=== PATIENT | female | born 1970 | race Hispanic/Latino ===

== ENCOUNTER 2019-10-03 12:34 | Emergency (ER) | payer SELFPAY ==
--- NOTE | 2019-10-03 13:56 | RAD REPORT ---
EXAM DESCRIPTION: RAD - Chest Pa And Lat (2 Views) - 10/03/2019 1:41 pm CLINICAL HISTORY: COUGH Chest pain. COMPARISON: No comparisons FINDINGS: The lungs are clear. The heart is normal in size. No displaced fractures. IMPRESSION: No acute finding suspected.
--- NOTE | 2019-10-03 14:01 | EDPHYS ---
Physician Documentation [facility] Name: Haley Ba Age: 49 yrs Sex: Female : 1970 Arrival Date: 10/03/2019 Time: 12:38 Bed 15 Private MD: MAHIN Physician Derrick Kaur HPI: 10/02 12:49 This 49 yrs old Female presents to ER via Ambulatory with complaints of Chest jmm Congestion. 12:49 The patient or guardian reports cough. Onset: The symptoms/episode began/occurred jmm gradually, 2 week(s) ago. Modifying factors: The symptoms are alleviated by nothing. the symptoms are aggravated by nothing. Associated signs and symptoms: Pertinent positives: sore throat, Pertinent negatives: diarrhea, fever. Historical: - Allergies: 12:45 No Known Allergies; ss - Home Meds: 12:45 None [Active]; ss - PMHx: 12:45 None; ss - PSHx: 12:45 None; ss - Immunization history:: Adult Immunizations up to date. - Social history:: Smoking status: Patient denies any tobacco usage or history of. ROS: 12:49 Constitutional: Negative for fever, chills, and weight loss, Cardiovascular: Negative jmm for chest pain, palpitations, and edema. 12:49 ENT: Positive for sore throat. 12:49 Respiratory: Positive for cough. 12:49 All other systems are negative. Exam: 12:49 Constitutional: This is a well developed, well nourished patient who is awake, alert, jmm and in no acute distress. Head/Face: atraumatic. Eyes: EOMI, no conjunctival erythema appreciated ENT: Moist Mucus Membranes Neck: Trachea midline, Supple Chest/axilla: Normal chest wall appearance and motion. Cardiovascular: Regular rate and rhythm. No edema appreciated 12:49 Abdomen/GI: Non distended, soft Back: Normal ROM Skin: General appearance color normal MS/ Extremity: Moves all extremities, no obvious deformities appreciated, no edema noted to the lower extremities Neuro: Awake and alert, normal gait Psych: Behavior is normal, Mood is normal, Patient is cooperative and pleasant 12:49 ENT: Posterior pharynx: erythema, that is mild. 12:49 Respiratory: the patient does not display signs of respiratory distress, Respirations: normal, Breath sounds: are clear throughout. 12:49 Abdomen/GI: Inspection: abdomen appears normal, Bowel sounds: normal, Palpation: abdomen is soft and non-tender, in all quadrants. Vital Signs: 12:44 BP 138 / 84; Pulse 80; Resp 16; Temp 97.9; Pulse Ox 96% ; Weight 70.76 kg; Height 5 ft. ss 6 in. (167.64 cm); Pain 0/10; 14:03 BP 127 / 81; Pulse 75; Resp 17; Temp 98; Pulse Ox 97% ; bp 12:44 Body Mass Index 25.18 (70.76 kg, 167.64 cm) ss MDM: 12:49 Patient medically screened. [facility] 13:58 Data reviewed: vital signs, nurses notes. Counseling: I had a detailed discussion [facility] the patient and/or guardian regarding: the historical points, exam findings, and any diagnostic results supporting the discharge/admit diagnosis, radiology results, the need for outpatient follow up, to return to the emergency department if symptoms worsen or persist or if there are any questions or concerns that arise at home. 10/02 13:07 Order name: Flu; Complete Time: 13:50 [facility] 10/02 13:07 Order name: Strep; Complete Time: 13:50 [facility] 10/02 13:07 Order name: Chest Pa And Lat (2 Views) XRAY; Complete Time: 13:58 [facility] 10/02 13:36 Order name: Throat Culture EDMS Administered Medications: No medications were administered Disposition: 10/03 13:46 Co-signature as Attending Physician, Derrick Kaur MD I agree with the assessment and [facility] plan of care. Disposition: 10/03/19 14:00 Discharged to Home. Impression: Acute pharyngitis. - Condition is Stable. - Discharge Instructions: Pharyngitis, Upper Respiratory Infection, Adult. - Prescriptions for Zithromax Z- Orlin 250 mg Oral Tablet - take 1 tablet by ORAL route as directed for 5 days Day 1 - take two (2) tablets one time. Day 2, 3, 4 , 5 take one (1) tablet once daily.; 6 tablet. - Medication Reconciliation Form, Thank You Letter, Antibiotic Education, Prescription Opioid Use form. - Follow up: Private Physician; When: 2 - 3 days; Reason: Recheck today's complaints, Continuance of care, Re-evaluation by your physician. Signatures: Dispatcher [employer] EDDerrick Dougherty MD MD cha Mickail, Joel, PA PA jmm Smirch, Shelby, COSMO RN Mario Alberto Ramsay RN RN bp Corrections: (The following items were deleted from the chart) 10/02 14:26 14:00 10/03/2019 14:00 Discharged to Home. Impression: Acute pharyngitis. Condition is bp Stable. Forms are Medication Reconciliation Form, Thank You Letter, Antibiotic Education, Prescription Opioid Use. Follow up: Private Physician; When: 2 - 3 days; Reason: Recheck today's complaints, Continuance of care, Re-evaluation by your physician. saida
--- NOTE | 2019-10-03 14:01 | ER ---
Nurse's Notes [facility] Name: Haley Ba Age: 49 yrs Sex: Female : 1970 Arrival Date: 10/03/2019 Time: 12:38 Bed 15 Private MD: Diagnosis: Acute pharyngitis Presentation: 10/02 12:44 Chief complaint: Patient states: chest congestion with mild cough x 2-3 weeks. Denies ss fever. Coronavirus screen: Surgical mask placed on patient. Patient moved to private room, placed in contact and droplet isolation with eye protection until further assessment. Patient reports a cough. Patient denies shortness of breath or difficulty breathing. Patient denies measured and/or subjective temperature greater than 100.4F. Patient denies travel on a cruise ship or to a country the [facility] currently lists as an affected area. Patient denies contact with known and/or suspected case of COVID-19. Ebola Screen: Patient denies exposure to infectious person. Patient denies travel to an Ebola-affected area in the 21 days before illness onset. Initial Sepsis Screen: Does the patient meet any 2 criteria? No. Patient's initial sepsis screen is negative. Does the patient have a suspected source of infection? No. Patient's initial sepsis screen is negative. Risk Assessment: Do you want to hurt yourself or someone else? Patient reports no desire to harm self or others. 12:44 Method Of Arrival: Ambulatory ss 12:44 Acuity: ANDRES 5 ss 12:45 Onset of symptoms is unknown. bp Triage Assessment: 13:00 General: Appears in no apparent distress. comfortable, Behavior is cooperative, bp appropriate for age, anxious. Pain: Denies pain. EENT: Reports nasal congestion. Neuro: No deficits noted. Cardiovascular: No deficits noted. Respiratory: No deficits noted. GI: No signs and/or symptoms were reported involving the gastrointestinal system. : No signs and/or symptoms were reported regarding the genitourinary system. Derm: No deficits noted. Musculoskeletal: No deficits noted. Historical: - Allergies: 12:45 No Known Allergies; ss - Home Meds: 12:45 None [Active]; ss - PMHx: 12:45 None; ss - PSHx: 12:45 None; ss - Immunization history:: Adult Immunizations up to date. - Social history:: Smoking status: Patient denies any tobacco usage or history of. Screenin:00 Abuse screen: Denies threats or abuse. Denies injuries from another. Nutritional bp screening: No deficits noted. Tuberculosis screening: No symptoms or risk factors identified. Fall Risk None identified. Assessment: 13:00 General: SEE TRIAGE NOTE. bp 14:06 Reassessment: PT D/C HOME AMBULATORY, DX WITH ACUTE PHARYNGITIS. bp Vital Signs: 12:44 BP 138 / 84; Pulse 80; Resp 16; Temp 97.9; Pulse Ox 96% ; Weight 70.76 kg; Height 5 ft. ss 6 in. (167.64 cm); Pain 0/10; 14:03 BP 127 / 81; Pulse 75; Resp 17; Temp 98; Pulse Ox 97% ; bp 12:44 Body Mass Index 25.18 (70.76 kg, 167.64 cm) ED Course: 12:38 Patient arrived in ED. am2 12:39 Mario Alberto Elizondo, RN is Primary Nurse. bp 12:45 Triage completed. 12:45 Arm band placed on right wrist. 12:47 Franky Price PA is PHCP. [facility] 12:47 Derrick Kaur MD is Attending Physician. [facility] 13:00 Patient has correct armband on for positive identification. Bed in low position. Call bp light in reach. Side rails up X2. 13:42 Chest Pa And Lat (2 Views) XRAY In Process Unspecified. EDMS 14:22 No provider procedures requiring assistance completed. Patient did not have IV access bp during this emergency room visit. Administered Medications: No medications were administered Outcome: 14:00 Discharge ordered by . [facility] 14:22 Discharged to home ambulatory, with family. bp 14:22 Condition: stable 14:22 Discharge instructions given to patient, Instructed on discharge instructions, follow up and referral plans. medication usage, Demonstrated understanding of instructions, follow-up care, medications, Prescriptions given X 1. 14:26 Patient left the ED. bp Signatures: Dispatcher [employer] EDMS Franky Price PA PA jmm Smirch, Shelby, COSMO RN Carisa Glover am2 Mario Alberto Elizondo, RN RN bp
[2019-10-03 14:42] VITALS: BP 127/81; TEMP 98; O2SAT 97
== END 2019-10-03 14:26 | disposition home or self-care (01) ==
LOC: ER 12:34
DX: J02.9 Acute pharyngitis, unspecified (principal)
CPT/HCPCS: 71046; 87070; 87081; 87804; 99283